=== PATIENT | female | born 1970 | race Caucasian/White ===

== ENCOUNTER 2019-01-12 20:25 | Emergency (ER) | payer OTHER ==
[2019-01-12] MEDS ORDERED: IPRATROPIUM-ALBUTEROL 3 ML NEB INHALATION STA (21:16)
[2019-01-12] MEDS ORDERED: methylPREDNISolone SOD SUCCI 125 MG/2 ML VIAL IV STA (21:17)
[2019-01-12] MEDS ORDERED: SODIUM CHLORIDE 0.9% 1,000 ML IV STA (21:18)
--- NOTE | 2019-01-12 22:11 | XR ---
EXAM: XR Chest, 2 Views CLINICAL HISTORY: Cough/pain TECHNIQUE: Frontal and lateral views of the chest. COMPARISON: No relevant prior studies available. FINDINGS: Lungs: Unremarkable. No consolidation. Pleural space: Unremarkable. No pneumothorax. Heart: Unremarkable. No cardiomegaly. Mediastinum: Unremarkable. Bones/joints: Mild lower thoracic scoliosis convexed to the left. IMPRESSION: No acute findings
[2019-01-12 22:27] LABS: HCT 36.3 % (34.0-46.0); HGB 11.8 gm/dL (11.4-16.0); MCH 31.5 pg (25.0-35.0); MCHC 32.6 g/dL (31.0-37.0); MCV 96.8 fL (80.0-100.0); Platelet Count 333 k/uL (150-450); RBC 3.76 m/uL (3.80-5.40); WBC 11.8 k/uL (3.8-10.6)
[2019-01-12 22:36] LABS: ALT 17 U/L (9-52); AST 32 U/L (14-36); African American GFR (CKD) >90 (>60 ml/min/1.73 sqM); Albumin 4.4 g/dL (3.5-5.0); Alkaline Phosphatase 54 U/L (38-126); Anion Gap 6 mmol/L; Blood Urea Nitrogen 11 mg/dL (7-17); Calcium 9.9 mg/dL (8.4-10.2); Carbon Dioxide 32 mmol/L (22-30); Chloride 99 mmol/L (98-107); Glucose 96 mg/dL (74-99); Sodium 137 mmol/L (137-145); Total Bilirubin 0.7 mg/dL (0.2-1.3); Total Protein 7.5 g/dL (6.3-8.2)
[2019-01-12 22:39] LABS: Potassium 4.8 mmol/L (3.5-5.1)
[2019-01-12] MEDS ORDERED: NICOTINE 21MG/24HR PATCH TRANSDERM STA (23:15)
[2019-01-12 23:53] LABS: Amorphous Sediment,Urine Few /hpf; Appearance,Urine Cloudy (Clear); Bacteria,Urine Occasional /hpf; Bilirubin,Urine Negative (Negative); Blood,Urine Negative (Negative); Color,Urine Yellow; Glucose,Urine (UA) Negative (Negative); Ketones,Urine Negative (Negative); Leukocyte Esterase,Urine Moderate (Negative); Nitrite,Urine Negative (Negative); Protein,Urine Negative (Negative); Specific Gravity,Urine 1.018 (1.001-1.035); Squamous Epithelial Cell,Urine 7 /hpf (0-4); Urobilinogen,Urine <2.0 mg/dL (<2.0); WBC,Urine 42 /hpf (0-5)
--- NOTE | 2019-01-12 23:54 | ED ---
General Adult HPI - General Chief complaint: Shortness of Breath Stated complaint: DAVID Time Seen by Provider: 01/12/19 21:08 Source: patient Mode of arrival: EMS Limitations: no limitations - History of Present Illness Initial comments: Patient is a 48-year-old female with history of COPD is presenting to emergency Department with shortness of breath. Patient is residing in a rehab facility. Patient reports one to the nursing station after developed mild shortness of breath and measured her oxygen saturation at 82%. Patient was given a breathing treatment with mild improvement. Patient doesn't use oxygen at home. Patient denies chest tightness, chest pain, nausea vomiting. Patient also reports sore throat but denies rhinorrhea or nasal congestion. Patient denies any increase in sputum production. Patient reports an nonproductive cough. Patient denies any headaches, lightheadedness or dizziness. Patient is a current smoker. Patient is also requesting a nicotine patch. - Related Data Home Medications Medication Instructions Recorded Confirmed Acetaminophen [Tylenol 8 Hour] 650 mg PO Q4H PRN 01/12/19 01/12/19 Albuterol Nebulized [Ventolin 2.5 mg INHALATION RT-Q4H PRN 01/12/19 01/12/19 Nebulized] Buprenorphine HCl/Naloxone HCl 1 film SL BID 01/12/19 01/12/19 [Buprenorp-Nalox 4-1 mg Sl Film] Buprenorphine HCl/Naloxone HCl 1 film SL DAILY 01/12/19 01/12/19 [Buprenorp-Nalox 4-1 mg Sl Film] Calcium 1000mg/Magnesium 500mg 1 tab PO TID PRN 01/12/19 01/12/19 Chlorpheniramine Maleate 4 mg PO Q4H PRN 01/12/19 01/12/19 [Chlor-Trimeton] Ibuprofen [Motrin] 600 mg PO Q6HR PRN 01/12/19 01/12/19 LORazepam [Ativan] 1 - 2 mg PO Q4H PRN 01/12/19 01/12/19 Mylanta 30 ml PO Q4H PRN 01/12/19 01/12/19 Ondansetron HCl [Zofran] 8 mg PO Q6H PRN 01/12/19 01/12/19 Umeclidinium [place] [Incruse 1 puff INHALATION RT-BID 01/12/19 01/12/19 Ellipta] busPIRone HCl [Buspar] 10 mg PO TID 01/12/19 01/12/19 Previous Rx's Medication Instructions Recorded Albuterol Inhaler [Ventolin Hfa 1 - 2 puff INHALATION RT-Q6H PRN 01/12/19 Inhaler] #1 inhaler Allergies Allergy/AdvReac Type Severity Reaction Status Date / Time No Known Allergies Allergy Verified 01/12/19 21:27 Review of Systems ROS Statement: Those systems with pertinent positive or pertinent negative responses have been documented in the HPI. ROS Other: All systems not noted in ROS Statement are negative. Past Medical History Past Medical History: COPD History of Any Multi-Drug Resistant Organisms: None Reported Past Surgical History: Heart Catheterization Past Psychological History: No Psychological Hx Reported Smoking Status: Current every day smoker Past Alcohol Use History: None Reported Past Drug Use History: Prescription Drug Abuse General Exam Limitations: no limitations General appearance: alert, in no apparent distress Head exam: Present: atraumatic, normocephalic, normal inspection Eye exam: Present: normal appearance, PERRL, EOMI. Absent: conjunctival injection Pupils: Present: normal accommodation ENT exam: Present: normal exam, mucous membranes dry, TM's normal bilaterally, normal external ear exam Neck exam: Present: normal inspection, full ROM Respiratory exam: Present: wheezes (Bilateral) Cardiovascular Exam: Present: regular rate, normal rhythm, normal heart sounds GI/Abdominal exam: Present: soft Extremities exam: Present: normal inspection, full ROM Back exam: Present: normal inspection, full ROM Neurological exam: Present: alert, oriented X3 Psychiatric exam: Present: normal affect, normal mood Skin exam: Present: warm, intact, normal color Course Vital Signs 01/12/19 01/12/19 01/12/19 20:30 22:26 22:41 Temperature 98.3 F Pulse Rate 74 80 74 Respiratory 22 22 Rate Blood Pressure 116/58 107/66 O2 Sat by Pulse 88 L 96 Oximetry 01/12/19 01/12/19 01/13/19 22:54 23:26 00:31 Temperature 98.6 F Pulse Rate 79 66 70 Respiratory 20 22 18 Rate Blood Pressure 118/85 116/80 O2 Sat by Pulse 96 96 Oximetry Medical Decision Making - Medical Decision Making Patient is a 48-year-old female with history of COPD presents to emergency department with shortness of breath. Patient was given 6 mg of DuoNeb treatment. Patient was also given 125 g of methylprednisolone. X-ray and labs are unremarkable. Patient Requested a Nicotine Patch. Patient is given 1 L of fluids. A reevaluation patient reports feeling much better and his breathing with ease. I have low suspicion for a URI at this time. Patient will be discharged with an albuterol inhaler. Patient advised to follow with primary care. Strict return parameters were thoroughly discussed. Patient was understanding and agreeable. Case discussed with physician. - Lab Data Result diagrams: 01/12/19 22:18 01/12/19 22:18 Lab Results 01/12/19 01/12/19 01/12/19 Range/Units 22:18 22:18 22:30 WBC 11.8 H (3.8-10.6) k/uL RBC 3.76 L (3.80-5.40) m/uL Hgb 11.8 (11.4-16.0) gm/dL Hct 36.3 (34.0-46.0) % MCV 96.8 (80.0-100.0) fL MCH 31.5 (25.0-35.0) pg MCHC 32.6 (31.0-37.0) g/dL RDW 14.0 (11.5-15.5) % Plt Count 333 (150-450) k/uL Sodium 137 (137-145) mmol/L Potassium 4.8 (3.5-5.1) mmol/L Chloride 99 (98-107) mmol/L Carbon Dioxide 32 H (22-30) mmol/L Anion Gap 6 mmol/L BUN 11 (7-17) mg/dL Creatinine 0.60 (0.52-1.04) mg/dL Est GFR (CKD-EPI)AfAm >90 (>60 ml/min/1.73 sqM) Est GFR (CKD-EPI)NonAf >90 (>60 ml/min/1.73 sqM) Glucose 96 (74-99) mg/dL Calcium 9.9 (8.4-10.2) mg/dL Total Bilirubin 0.7 (0.2-1.3) mg/dL AST 32 (14-36) U/L ALT 17 (9-52) U/L Alkaline Phosphatase 54 (38-126) U/L Total Protein 7.5 (6.3-8.2) g/dL Albumin 4.4 (3.5-5.0) g/dL Urine Color Yellow Urine Appearance Cloudy H (Clear) Urine pH 8.0 (5.0-8.0) Ur Specific [place] 1.018 (1.001-1.035) Urine Protein Negative (Negative) Urine Glucose (UA) Negative (Negative) Urine Ketones Negative (Negative) Urine Blood Negative (Negative) Urine Nitrite Negative (Negative) Urine Bilirubin Negative (Negative) Urine Urobilinogen <2.0 (<2.0) mg/dL Ur Leukocyte Esterase Moderate H (Negative) Urine WBC 42 H (0-5) /hpf Urine WBC Clumps Rare H (None) /hpf Ur Squamous Epith Cells 7 H (0-4) /hpf Amorphous Sediment Few H (None) /hpf Urine Bacteria Occasional H (None) /hpf Disposition Clinical Impression: COPD exacerbation Disposition: HOME SELF-CARE Condition: Stable Instructions (If sedation given, give patient instructions): Chronic Cough (ED) Additional Instructions: History prescribe medication as directed. Please follow with primary care. Position to emergency department if symptoms worsen. Prescriptions: Albuterol Inhaler [Ventolin Hfa Inhaler] 1 - 2 puff INHALATION RT-Q6H PRN #1 inhaler PRN Reason: Cough Is patient prescribed a controlled substance at d/c from ED?: No Referrals: None,Stated [Primary Care Provider] - 1-2 days Time of Disposition: 23:54
[2019-01-13 00:33] VITALS: BP 116/80; PULSE 70; RESP 18; TEMP 98.6
== END 2019-01-13 00:28 | disposition home or self-care (01) ==
LOC: EC 20:25
DX: J44.1 Chronic obstructive pulmonary disease with (acute) exacerbation (principal); F17.200 Nicotine dependence, unspecified, uncomplicated; Z79.51 Long term (current) use of inhaled steroids; Z79.899 Other long term (current) drug therapy; Z95.818 Presence of other cardiac implants and grafts
CPT/HCPCS: 36415; 94640; 80053; 85027; 81001; 71046; 99285; 96374; 96361; S4990; J2930